=== PATIENT | female | born 2000 | race Caucasian/White ===

== ENCOUNTER 2023-04-01 11:17 | Outpatient (CLI) | payer BC, SELFPAY | END 2023-04-01 11:18 | disposition home or self-care (01) | PROVIDERS: PCP Physician Assistant; Visit Provider Physician Assistant | DX: R53.83 Other fatigue (principal); D64.9 Anemia, unspecified; N92.0 Excessive and frequent menstruation with regular cycle | CPT/HCPCS: 82306; 82728; 84443 ==